=== PATIENT | male | born 1975 | race Caucasian/White ===

== ENCOUNTER 2016-11-04 10:17 | Emergency (ER) | payer OTHER ==
[2016-11-04 12:58] LABS: BASO % 0.2 % (0.2-1.2); EOS # 0.2 10_X3_uL (0.0-0.5); EOS % 2.1 % (0.8-7.0); GRAN # 7.8 10_X3_uL (1.8-5.4); GRAN % 71.8 % (34.0-67.9); HEMATOCRIT 38.3 % (40-51); HEMOGLOBIN 13.2 g/dL (13.7-17.5); LYMPH % 18.2 % (21.8-53.1); MEAN CORPUSCULAR HEMOGLOBIN 28.6 pg (27.0-33.0); MEAN CORPUSCULAR HGB CONC 34.5 g/dL (32.0-36.0); MEAN CORPUSCULAR VOLUME 82.9 fL (79-92); MEAN PLATELET VOLUME 9.8 fl (7.5-11.5); MONO # 0.8 10_X3_uL (0.3-0.8); MONO % 7.7 % (5.3-12.2); PLATELET COUNT 391 x10_3/uL (163-337); RED BLOOD COUNT 4.62 x10_6/uL (4.6-6.1); RED CELL DISTRIBUTION WIDTH 13.7 % (11.6-14.4); WHITE BLOOD COUNT 10.8 x10_3/uL (4.2-9.1)
[2016-11-04 13:08] LABS: BLOOD UREA NITROGEN 16 mg/dL (7-18); CALCIUM 9.9 mg/dL (8.7-10.7); CARBON DIOXIDE 27 mmol/L (21-32); CREATININE 0.6 mg/dL (0.6-1.3); GLUCOSE,RANDOM 91 mg/dL (70-99); POTASSIUM 4.3 mmol/L (3.5-5.1); SODIUM 136 mmol/L (136-145)
[2016-11-04 13:09] LABS: ETHYL ALCOHOL < 10 mg/dl
== END 2016-11-04 14:11 | disposition home or self-care (01) ==
LOC: ER 10:17
PROVIDERS: Emergency Medicine
DX: S00.83XA Contusion of other part of head, initial encounter (principal); S63.501A Unspecified sprain of right wrist, initial encounter; S13.4XXA Sprain of ligaments of cervical spine, initial encounter; W11.XXXA Fall on and from ladder, initial encounter; Y92.009 Unspecified place in unspecified non-institutional (private) residence as the place of occurrence of the external cause; F17.210 Nicotine dependence, cigarettes, uncomplicated
CPT/HCPCS: 36415; 70450; 70486; 71250; 72125; 73110; 74150; 80048; 85025; 99284-25; G0480